=== PATIENT | male | born 1970 | race Caucasian/White ===

== ENCOUNTER 2019-10-24 23:51 | Emergency (ER) | payer OTHER ==
[~2019-10-24] VITALS: Ht 167.6 cm; Wt 102.1 kg
[2019-10-24 23:51] VITALS: BP_SYST 155
--- NOTE | 2019-10-24 23:53 | NUR ---
Pt placed to ER bed 02, to gown, to ict analyst.
--- NOTE | 2019-10-25 | NUR ---
Dr. Choudhary at bedside.
--- NOTE | 2019-10-25 00:07 | NUR ---
Pt report given to CAROLEE Serna.
--- NOTE | 2019-10-25 00:07 | NUR ---
Patel rojas in ED - 10/25/19 at 0014 by [email or web address] Pt placed to ER bed 02, to aquiles, to monitor car operator. Pt report given to
[2019-10-25] MEDS ORDERED: NITROGLYCERIN 0.4 MG TAB.SUBL SL ONE (00:15)
[2019-10-25] MEDS ORDERED: ASPIRIN 325 MG TABLET PO ONE (00:15)
--- NOTE | 2019-10-25 00:15 | NUR ---
ASPIRIN 325 MG PO AND NITRO 0.4 MG SL GIVEN.
--- NOTE | 2019-10-25 00:16 | NUR ---
X-ray at bedside.
--- NOTE | 2019-10-25 00:20 | NUR ---
GAUGE 20 IV LINE ESTABLISHED TO THE LEFT AC. BLOOD ALSO DRAWN. (+) STEMI PER ER-MD. 911 CALLED BY MINING AND QUARRYING MACHINERY REPAIRER FOR TRANSFER TO HIGHER LEVEL OF CARE. PT. VERBALIZED RELIEF OF PAIN.
--- NOTE | 2019-10-25 00:24 | NUR ---
Heparin 5000 Units given IVP to patent PIV LAC. Prior to administration, medication, dosage, and route along with pt name and verified with CAROLEE Hernandez.
--- NOTE | 2019-10-25 00:27 | NUR ---
PORTABLE CXR DONE.
[2019-10-25] MEDS ORDERED: HEPARIN SODIUM,PORCINE 5000 UNITS/ML VIAL IVP ONE (00:30)
--- NOTE | 2019-10-25 00:30 | NUR ---
Report given to Nurse Sanabria ([facility]).
--- NOTE | 2019-10-25 00:32 | NUR ---
PARAMEDICS/EMS HERE TO [facility]AG EXPANDER PT. REPORT GIVEN. CAT ORO IS CARELISEO. PT. GOING TO [facility].
--- NOTE | 2019-10-25 00:35 | NUR ---
PT.LEFT UNIT VIA BISI.
--- NOTE | 2019-10-25 00:38 | NUR ---
Patel rojas in ED - 10/25/19 at 0136 by [email or web address] PT.CLARICE UNIT VIA BISI.
[2019-10-25 00:39] LABS: BASOPHILS % (AUTO) 0.3 % (0.0-2.0); EOSINOPHILS # (AUTO) 0.1 K/uL (0.0-0.4); EOSINOPHILS % (AUTO) 1.8 % (0.0-4.0); HEMOGLOBIN 16.7 g/dL (14.0-18.0); LYMPHOCYTES # (AUTO) 2.6 K/uL (1.0-5.5); LYMPHOCYTES % (AUTO) 37.4 % (20.5-51.5); MEAN CORPUSCULAR HEMOGLOBIN 30 pg (27-31); MEAN CORPUSCULAR HGB CONC 34 % (32-36); MEAN CORPUSCULAR VOLUME 89 fL (79.0-98.0); MONOCYTES # (AUTO) 0.5 K/uL (0.0-1.0); NEUTROPHILS # (AUTO) 3.6 K/uL (1.8-7.7); NEUTROPHILS % (AUTO) 52.5 % (40.0-70.0); PLATELET COUNT (AUTO) 215 K/uL (130-430); RED BLOOD CELL COUNT(AUTO) 5.51 MIL/uL (4.2-6.2); RED CELL DISTRIBUTION WIDTH 13.6 % (9.0-15.0); WHITE BLOOD COUNT (AUTO) 6.9 K/uL (4.8-10.8)
[2019-10-25 00:45] VITALS: BP_SYST 142
[2019-10-25 00:48] LABS: CALCIUM 8.9 mg/dL (8.4-11.0); CREATININE 1.04 mg/dL (0.55-1.30); POTASSIUM 3.9 mmol/L (3.5-5.1)
[2019-10-25 00:51] LABS: PROTHROMBIN TIME 10.1 SECS (9.5-12.5)
[2019-10-25 01:02] LABS: ALBUMIN 4.1 g/dL (3.4-4.8); TOTAL BILIRUBIN 0.3 mg/dL (0.0-1.0)
== END 2019-10-25 00:35 | disposition short-term general hospital (02) ==
LOC: SED 23:51
DX: I24.9 Acute ischemic heart disease, unspecified (principal)
CPT/HCPCS: 36415; 71045; 80053; 82550-TC; 84484; 85025; 85379; 85610-TC; 85730-TC; 93005; 96374; 99291